=== PATIENT | male | born 1980 | race African-American/Black ===

== ENCOUNTER 2019-06-17 16:15 | Emergency (ER) | payer OTHER ==
[2019-06-17] MEDS ORDERED: Ketorolac 60 MG/2 ML SDV IM ONE (17:00)
--- NOTE | 2019-06-17 17:00 | EDM.PDOC ---
ED HPI GENERAL MEDICAL PROBLEM - General Chief Complaint: Laceration Stated Complaint: LEFT HAND 5TH DIGIT LACERATION Time Seen by Provider: 06/17/19 16:47 Source of Information: Reports: Patient History Limitations: Reports: No Limitations - History of Present Illness INITIAL COMMENTS - FREE TEXT/NARRATIVE: Patient sent here from [facility] for evaluation of left hand injury. Had tips of 3rd, 4th, and 5th digits pinched between a bar and a metal plate. Tip of 5th finger is numb, reports laceration of this fingertip. Some discomfort also in tips of middle and ring finger. If he moves the fingers, has discomfort running along extensor/flexor muscles of left forearm. Denies other injuries. Tetanus is up to date per patient. Left Finger-Little Pain Score (Numeric/FACES): 10 - Related Data Allergies Allergy/AdvReac Type Severity Reaction Status Date / Time No Known Allergies Allergy Verified 06/17/19 16:24 Home Meds: Home Meds . [Unable to Verify Home Med List] 06/17/19 [History] Past Medical History Cardiovascular History: Reports: Hypertension Social & Family History - Tobacco Use Smoking Status *Q: Never Smoker Second Hand Smoke Exposure: No - Caffeine Use Caffeine Use: Reports: Soda - Recreational Drug Use Recreational Drug Use: No ED ROS GENERAL - Review of Systems Review Of Systems: ROS reveals no pertinent complaints other than HPI. ED EXAM, SKIN/RASH Exam: See Below Exam Limited By: No Limitations General Appearance: Alert, WD/WN, No Apparent Distress Eye Exam: Bilateral Eye: EOMI, PERRL Throat/Mouth: Normal Voice, No Airway Compromise Head: Atraumatic, Normocephalic Neck: Supple Respiratory/Chest: No Respiratory Distress Peripheral Pulses: 2+: Radial (L) Extremities: Normal Capillary Refill, Other (examination of injured left fingers shows no swelling or deformity. Has small laceration noted pad of left 5th finger. Tendon function appears to be intact in all fingers, however has some pain limitation with flexion and extension of left DIP joint. Tender with palpation over distal fingertips of 3,4 and 5th fingers. Hand and fingers appear vascularly intact. ) Neurological: Alert, Oriented, Normal Cognition, Normal Gait Course - Vital Signs Last Recorded V/S: Last Vital Signs Temp 36.5 C 06/17/19 16:16 Pulse 81 06/17/19 16:16 Resp 20 06/17/19 16:16 BP 154/112 H 06/17/19 16:16 Pulse Ox 100 06/17/19 16:16 - Orders/Labs/Meds Orders: Active Orders 24 hr Category Date Time Status Fingers Multiple Lt [CR] Stat Exams 06/17/19 16:53 Ordered Meds: Medications Discontinued Medications Generic Name Dose Route Start Last Admin Trade Name Barbara PRN Reason Stop Dose Admin Ketorolac Tromethamine 60 mg 06/17/19 17:00 06/17/19 17:21 Toradol IM 06/17/19 17:01 60 mg ONETIME ONE Administration Neomycin/Polymyxin/Bacitracin 1 each 06/17/19 17:21 06/17/19 17:26 Triple Antibiotic Oint TOP 06/17/19 17:22 1 each ONETIME ONE Administration - Radiology Interpretation Free Text/Narrative:: Small nondisplaced fracture of distal left 5th phalanx noted. - Re-Assessments/Exams Free Text/Narrative Re-Assessment/Exam: 06/17/19 17:00 Xray of left fingers requested. Fracture of 5th distal phalanx noted. Does not appear to be an open fracture. Very small shallow cut noted on pad of finger. Antibiotic ointment applied to small laceration and area bandaged. Finger then splinted for protections. Work slip given for today and tomorrow. Patient to make appointment at clinic to get rechecked on Saturday. Further work restrictions to be determined at that time as needed. BP elevated. Has history of hypertension but cannot recall name of medicine he is on. Suspect discomfort from finger injury is driving up BP readings. Toradol IM ordered to help with discomfort and single Metoprolol given in ER. Patient to have BP rechecked in two days when he gets his finger rechecked. Departure - Departure Time of Disposition: 17:30 Disposition: Home, Self-Care 01 Condition: Good Clinical Impression: Crushing injury of finger of left hand Fracture of distal phalanx of finger Qualifiers: Encounter type: initial encounter Finger: little finger Fracture type: closed Fracture alignment: nondisplaced Laterality: left Qualified Code(s): S62.667A - Nondisplaced fracture of distal phalanx of left little finger, initial encounter for closed fracture Hypertension Qualifiers: Hypertension type: unspecified Qualified Code(s): I10 - Essential (primary) hypertension - Discharge Information *PRESCRIPTION DRUG MONITORING PROGRAM REVIEWED*: Not Applicable *COPY OF PRESCRIPTION DRUG MONITORING REPORT IN PATIENT BÁRBARA: Not Applicable Instructions: Crush Injury of the Hand, [id number] Referrals: PCP,None [Primary Care Provider] - Forms: ED Department Discharge Additional Instructions: Call clinic tomorrow and make appointment for a recheck for Saturday. Further work restrictions as needed can be determined at that time. Have your blood pressure rechecked too as it was elevated today. The elevation may have been due to the pain from the finger, but if your BP remains increased, you may need to start medications for your blood pressure. OK to use Ibuprofen or Aleve or Tylenol as bottle instructs to help with pain. Elevated that hand, rest injured area to also improve any discomfort. - My Orders Last 24 Hours: My Active Orders 06/17/19 16:53 Fingers Multiple Lt [CR] Stat - Assessment/Plan Last 24 Hours: My Active Orders 06/17/19 16:53 Fingers Multiple Lt [CR] Stat
[2019-06-17] MEDS ORDERED: Bacitracin/Neomycin/Polymyxin B Oint 0.9 GM U/D Packet TOP ONE (17:21)
[2019-06-17] MEDS ORDERED: Metoprolol Tartrate 25 MG Tab PO ONE (17:29)
== END 2019-06-17 17:40 | disposition home or self-care (01) ==
LOC: LL.ED 16:15
DX: S67.197A Crushing injury of left little finger, initial encounter (principal); S62.667A Nondisplaced fracture of distal phalanx of left little finger, initial encounter for closed fracture; I10 Essential (primary) hypertension; W23.1XXA Caught, crushed, jammed, or pinched between stationary objects, initial encounter
CPT/HCPCS: 73140; 96372; 99283; A9270; J1885